=== PATIENT | male | born 1965 | race Two or more races ===

== ENCOUNTER 2021-04-08 04:38 | Emergency (ER) | payer OTHER ==
[~2021-04-08] VITALS: Ht 190.5 cm; Wt 90.7 kg
--- NOTE | 2021-04-08 04:52 | NUR ---
BIB SELF C/O MIDSTERNAL "BURNING" CHEST PAIN THAT IS NOT RADIATING WELL ABD PAIN ALSO DESCRIBED "BURNING. PAIN 01/14 ONSET 1200. NO NASUEA/VOMITTING/ DIARRHEA. CHANGED INTO A GOWN PLACED ON ASSISTANT BUSINESS MANAGER ALL VITALS STABLE. MD WAS AT BEDSIDE FOR EVAL.
[2021-04-08 05:16] LABS: BASOPHILS % (AUTO) 0.5 % (0.0-2.0); EOSINOPHILS % (AUTO) 3.9 % (0.0-6.0); HEMATOCRIT 38 % (39-51); HEMOGLOBIN 12.8 g/dL (13.5-17.5); LYMPHOCYTES % (AUTO) 34.9 % (20.0-44.0); MEAN CORPUSCULAR HGB CONC 34 g/dl (31.0-36.0); MEAN CORPUSCULAR VOLUME 88 fL (80-96); MONOCYTES # (AUTO) 0.5 K/uL (0.1-1.30); NEUTROPHILS % (AUTO) 51.7 % (43.0-81.0); PLATELET COUNT (AUTO) 229 K/uL (150-450); RED BLOOD CELL COUNT(AUTO) 4.27 MIL/uL (4.5-6.0); WHITE BLOOD COUNT (AUTO) 5.8 K/uL (4.3-11.0)
[2021-04-08] MEDS ORDERED: LIDOCAINE VISCOUS 2% UD 15 ML UDC ONE (05:17)
[2021-04-08] MEDS ORDERED: MAG HYDROX/AL HYDROX/SIMETH 30 ML UDC ONE (05:17)
[2021-04-08] MEDS ORDERED: FAMOTIDINE/PF INJ 20 MG/2 ML VIAL IV ONE (05:18)
[2021-04-08 05:24] LABS: CALCIUM, SERUM 8.9 mg/dL (8.5-10.1); CARBON DIOXIDE 29 mmol/L (21-32); CHLORIDE 103 mmol/L (98-107); CREATININE 0.9 mg/dL (0.6-1.3); GLUCOSE 82 mg/dL (74-106); POTASSIUM 4.5 mmol/L (3.5-5.1); SODIUM SERUM 139 mmol/L (136-145); UREA NITROGEN, BLOOD 21 mg/dL (7-18)
[2021-04-08] MEDS: FAMOTIDINE/PF INJ 20 MG/2 ML VIAL IV ONE (05:25)
[2021-04-08] MEDS: LIDOCAINE VISCOUS 2% UD 15 ML UDC MM ONE (05:25)
[2021-04-08] MEDS: MAG HYDROX/AL HYDROX/SIMETH 30 ML UDC PO ONE (05:26)
--- NOTE | 2021-04-08 05:26 | NUR ---
xray at bedside
[2021-04-08 05:42] LABS: ALBUMIN 3.8 g/dL (3.4-5.0); BILIRUBIN,DIRECT 0.1 mg/dL (0.0-0.2); BILIRUBIN,TOTAL 0.4 mg/dL (0.2-1.0); TOTAL PROTEIN, SERUM 7.5 g/dL (6.4-8.2)
[2021-04-08] MEDS ORDERED: HYDROCODONE/APAP 5/325MG TABLET ONE (06:01)
[2021-04-08] MEDS: HYDROCODONE/APAP 5/325MG TABLET PO ONE (06:03)
--- NOTE | 2021-04-08 06:46 | NUR ---
Patient discharged to home in stable condition. Written and verbal after care instructions given. Patient verbalizes understanding of instruction.
[2021-04-08 06:48] VITALS: BP 105/61
== END 2021-04-08 06:48 | disposition home or self-care (01) ==
LOC: ER 04:40
DX: R07.89 Other chest pain (principal); I45.10 Unspecified right bundle-branch block; I10 Essential (primary) hypertension; F17.210 Nicotine dependence, cigarettes, uncomplicated; F12.90 Cannabis use, unspecified, uncomplicated; Z60.2 Problems related to living alone
CPT/HCPCS: 36415; 71045; 80048; 80076; 83690; 84484; 85025; 85378; 93005; 96374; 99285; J3490